=== PATIENT | female | born 1945 | race Caucasian/White ===

== ENCOUNTER 2016-07-23 10:24 | Emergency (ER) | payer OTHER ==
[~2016-07-23] VITALS: Ht 167.6 cm; Wt 78.7 kg
[2016-07-23 11:03] LABS: HEMATOCRIT 48.7 % (36.0-46.0); MCH 29.9 PG (29.0-34.0); MCHC 33.7 G/DL (30.0-36.0); MCV 88.7 FL (83-99); MEAN PLAT.VOLUME 9.2 uM^3 (9.5-12.4); PLATELET COUNT 253 K/uL (156-360); RBC DIS.WIDTH-CV 12.1 % (11.8-14.6); RED BLOOD COUNT 5.49 M/uL (3.80-5.20); WHITE BLOOD COUNT 7.7 K/uL (4.1-10.2)
[2016-07-23 11:14] LABS: CHLORIDE 106 mEq/L (99-109); POTASSIUM 4.1 mEq/L (3.7-5.4); SODIUM 140 mEq/L (136-147)
[2016-07-23 11:16] LABS: GLUCOSE 96 mg/dL (70-99)
[2016-07-23 11:17] LABS: ANION GAP 8 MEQ/L (2-14)
[2016-07-23 11:18] LABS: TOTAL BILIRUBIN 0.5 mg/dL (0.0-1.0)
[2016-07-23 11:19] LABS: ALKALINE PHOSPHATASE 72 IU/L (3-129)
[2016-07-23 11:20] LABS: GFR ESTIMATE (CALCULATED) > 59 mL/min/
[2016-07-23 11:21] LABS: UREA NITROGEN (BUN) 6 mg/dL (9-23)
[2016-07-23] MEDS ORDERED: FLORASTOR250 MG PO (14:27)
[2016-07-23] MEDS ORDERED: QUESTRAN PACKET4 GM PO (14:27)
[2016-07-23 14:49] VITALS: BP 139/69
== END 2016-07-23 14:56 | disposition home or self-care (01) ==
LOC: EME 10:24
DX: R19.7 Diarrhea, unspecified (principal); E78.5 Hyperlipidemia, unspecified
CPT/HCPCS: 80053; 81003; 85027; 87493; 99281; 99284